=== PATIENT | female | born 1985 | race American Indian/Alaskan Native ===

== ENCOUNTER 2019-11-22 20:09 | Inpatient (IN) | payer OTHER ==
--- NOTE | 2019-11-22 20:13 | Event Note ---
ED Screening Note ED Screening Note: facial droop began at 7 PM tonight forehead sparing code stroke initiated This initial assessment/diagnostic orders/clinical plan/treatment(s) is/are subject to change based on patients health status, clinical progression and re- assessment by fellow clinical providers in the ED. Further treatment and workup at subsequent clinical providers discretion. Patient/guardian urged not to elope from the ED as their condition may be serious if not clinically assessed and managed.
[2019-11-22 20:41] LABS: Basophils % (Auto) 0.3 % (0.0-1.8); Eosinophils # (Auto) 0.2 K/mm3 (0.0-0.4); Eosinophils % (Auto) 3.8 % (0.0-4.3); Hemoglobin 11.5 gm/dl (10.1-14.3); Lymphocytes # (Auto) 3.3 K/mm3 (1.2-5.4); Lymphocytes % (Auto) 52.9 % (13.4-35.0); Mean Corpuscular HGB Conc 32 % (30-34); Mean Corpuscular Volume 76 fl (79-97); Monocytes # (Auto) 0.4 K/mm3 (0.0-0.8); Monocytes % (Auto) 5.9 % (0.0-7.3); Platelet Count 247 K/mm3 (140-440); Red Blood Count 4.75 M/mm3 (3.65-5.03); Red Cell Distribution Width 16.6 % (13.2-15.2)
--- NOTE | 2019-11-22 20:48 | Emergency Department Report ---
ED Neuro Deficit HPI - General Chief Complaint: Neuro Symptoms/Deficit Stated Complaint: FACE TWISTING Time Seen by Provider: 11/22/19 20:12 Source: patient Mode of arrival: Ambulatory Limitations: No Limitations - History of Present Illness Initial Comments: 34-year-old female the past medical history of anemia presents to the hospital planing of stroke symptoms at 7 PM. Patient was driving from another state and about 7 PM noticed that her left face was twisting. She FaceTime to family member who noticed that she had left-sided facial droop. Patient reports that she has a mild unsteady gait prior to arrival as well. Patient has had a intermittent left-sided headache and denies a history of migraines. Patient does have a twin sister who has a history of hypertension and previous CVA in her early 30s. Patient has not had her blood pressure checked to determine if if she has high blood pressure presents with hypertension in the ED. code stroke was initiated in triage - Related Data Allergies/Adverse Reactions: Allergies Allergy/AdvReac Type Severity Reaction Status Date / Time No Known Allergies Allergy Verified 11/22/19 20:42 ED Review of Systems ROS: Stated complaint: FACE TWISTING Other details as noted in HPI Comment: All other systems reviewed and negative ED Neuro Physical Exam - General Limitations: No Limitations Suspected Stroke: Yes - NIHSS Assessment Interval: Baseline 1a. Level of Consciousness: alert/keenly responsive 1b. LOC Questions: answers both correctly 1c. LOC Commands: performs tasks correctly 2. Best Gaze: normal 3. Visual: no visual loss 4. Facial Palsy: minor paralysis 5b. Motor Arm Right: no drift 5a. Motor Arm Left: drift 6a. Motor Leg Left: some gravity effort 6b. Motor Leg Right: no drift 7. Limb Ataxia: absent 8. Sensory: mild/moderate sensory loss 9. Best Language: no aphasia 10. Dysarthria: normal 11. Extinction/Inattention: no abnormality Total Score: 5 Stroke Severity: Moderate Stroke - Other Other exam information: General: No acute distress Head: Atraumatic Eyes: normal appearance ENT: Moist mucous membranes Neck: Normal appearance, no midline tenderness Chest: Clear to auscultation bilaterally CV: Regular rate and rhythm Abdomen: Soft, normal bowel sounds, nontender, nondistended, no rebound or guarding Back: Normal inspection Extremity: Normal inspection, full range of motion Neuro: Alert O x 3, see NIHSS Psych: Appropriate behavior Skin: No rash ED Course Vital Signs 11/22/19 11/22/19 11/22/19 20:20 20:41 21:00 Temperature 98.3 F Pulse Rate 83 88 82 Pulse Rate [ Right Arm] Respiratory 16 20 Rate Respiratory Rate [Right Arm ] Blood Pressure 192/105 151/94 Blood Pressure [Right Arm] Blood Pressure 177/114 [Right] O2 Sat by Pulse 100 98 Oximetry O2 Sat by Pulse Oximetry [ Right Arm] 11/22/19 11/22/19 11/22/19 21:02 21:05 21:44 Temperature 98.2 F Pulse Rate 87 85 Pulse Rate [ 87 Right Arm] Respiratory Rate Respiratory 16 Rate [Right Arm ] Blood Pressure 132/90 132/90 Blood Pressure 132/90 [Right Arm] Blood Pressure [Right] O2 Sat by Pulse Oximetry O2 Sat by Pulse 100 Oximetry [ Right Arm] 11/22/19 11/22/19 11/22/19 21:45 22:00 22:15 Temperature Pulse Rate 92 H 83 80 Pulse Rate [ Right Arm] Respiratory 16 14 14 Rate Respiratory Rate [Right Arm ] Blood Pressure 150/98 150/90 150/73 Blood Pressure [Right Arm] Blood Pressure [Right] O2 Sat by Pulse 100 98 100 Oximetry O2 Sat by Pulse Oximetry [ Right Arm] 11/22/19 11/22/19 11/22/19 22:30 22:46 22:53 Temperature Pulse Rate 78 77 Pulse Rate [ Right Arm] Respiratory 14 12 16 Rate Respiratory Rate [Right Arm ] Blood Pressure 125/77 125/77 Blood Pressure [Right Arm] Blood Pressure [Right] O2 Sat by Pulse 100 Oximetry O2 Sat by Pulse Oximetry [ Right Arm] 11/22/19 23:00 Temperature Pulse Rate 76 Pulse Rate [ Right Arm] Respiratory 11 L Rate Respiratory Rate [Right Arm ] Blood Pressure 128/75 Blood Pressure [Right Arm] Blood Pressure [Right] O2 Sat by Pulse 100 Oximetry O2 Sat by Pulse Oximetry [ Right Arm] - Reevaluation(s) Reevaluation #1: 11/22/19 22:16 Patient complained of frontal headache that started after near completion of TPA infusion. Case we discussed with neurologist who is in agreement that patient needs a repeat CT head is indicated. Morphine 4 mg and Zofran 4 mg ordered - Lab Data Result diagrams: 11/22/19 20:30 11/22/19 20:30 Lab Results 11/22/19 11/22/19 11/22/19 Range/Units 20:24 20:30 20:30 WBC 6.3 (4.5-11.0) K/mm3 RBC 4.75 (3.65-5.03) M/mm3 Hgb 11.5 (10.1-14.3) gm/dl Hct 36.0 (30.3-42.9) % MCV 76 L (79-97) fl MCH 24 L (28-32) pg MCHC 32 (30-34) % RDW 16.6 H (13.2-15.2) % Plt Count 247 (140-440) K/mm3 Lymph % (Auto) 52.9 H (13.4-35.0) % [place] % (Auto) 5.9 (0.0-7.3) % Eos % (Auto) 3.8 (0.0-4.3) % Baso % (Auto) 0.3 (0.0-1.8) % Lymph # 3.3 (1.2-5.4) K/mm3 [place] # 0.4 (0.0-0.8) K/mm3 Eos # 0.2 (0.0-0.4) K/mm3 Baso # 0.0 (0.0-0.1) K/mm3 Seg Neutrophils % 37.1 L (40.0-70.0) % Seg Neutrophils # 2.3 (1.8-7.7) K/mm3 PT 13.0 (12.2-14.9) Sec. INR 0.97 (0.87-1.13) APTT 27.5 (24.2-36.6) Sec. Thrombin Time 16.5 (15.1-19.6) Sec. Sodium (137-145) mmol/L Potassium (3.6-5.0) mmol/L Chloride (98-107) mmol/L Carbon Dioxide (22-30) mmol/L Anion Gap mmol/L BUN (7-17) mg/dL Creatinine (0.7-1.2) mg/dL Estimated GFR ml/min BUN/Creatinine Ratio % Glucose (65-100) mg/dL POC Glucose 103 (70-105) Calcium (8.4-10.2) mg/dL Total Bilirubin (0.1-1.2) mg/dL AST (5-40) units/L ALT (7-56) units/L Alkaline Phosphatase (35-129) units/L Total Creatine Kinase (30-135) units/L CK-MB (CK-2) (0.0-4.0) ng/mL CK-MB (CK-2) Rel Index (0-4) Troponin T (0.00-0.029) ng/mL Total Protein (6.3-8.2) g/dL Albumin (3.9-5) g/dL Albumin/Globulin Ratio % HCG, Quant (0-4) mIU/mL 11/22/19 11/22/19 11/22/19 Range/Units 20:30 20:30 20:30 WBC (4.5-11.0) K/mm3 RBC (3.65-5.03) M/mm3 Hgb (10.1-14.3) gm/dl Hct (30.3-42.9) % MCV (79-97) fl MCH (28-32) pg MCHC (30-34) % RDW (13.2-15.2) % Plt Count (140-440) K/mm3 Lymph % (Auto) (13.4-35.0) % [place] % (Auto) (0.0-7.3) % Eos % (Auto) (0.0-4.3) % Baso % (Auto) (0.0-1.8) % Lymph # (1.2-5.4) K/mm3 [place] # (0.0-0.8) K/mm3 Eos # (0.0-0.4) K/mm3 Baso # (0.0-0.1) K/mm3 Seg Neutrophils % (40.0-70.0) % Seg Neutrophils # (1.8-7.7) K/mm3 PT (12.2-14.9) Sec. INR (0.87-1.13) APTT (24.2-36.6) Sec. Thrombin Time (15.1-19.6) Sec. Sodium 142 (137-145) mmol/L Potassium 3.6 (3.6-5.0) mmol/L Chloride 106.0 (98-107) mmol/L Carbon Dioxide 23 (22-30) mmol/L Anion Gap 17 mmol/L BUN 13 (7-17) mg/dL Creatinine 0.7 (0.7-1.2) mg/dL Estimated GFR > 60 ml/min BUN/Creatinine Ratio 19 % Glucose 97 (65-100) mg/dL POC Glucose (70-105) Calcium 9.4 (8.4-10.2) mg/dL Total Bilirubin 0.20 (0.1-1.2) mg/dL AST 18 (5-40) units/L ALT 15 (7-56) units/L Alkaline Phosphatase 44 (35-129) units/L Total Creatine Kinase 70 (30-135) units/L CK-MB (CK-2) < 1.0 (0.0-4.0) ng/mL CK-MB (CK-2) Rel Index 1.4 (0-4) Troponin T < 0.010 (0.00-0.029) ng/mL Total Protein 7.6 (6.3-8.2) g/dL Albumin 4.3 (3.9-5) g/dL Albumin/Globulin Ratio 1.3 % HCG, Quant < 2 (0-4) mIU/mL - EKG Data -: EKG Interpreted by Pr EKG shows normal: sinus rhythm, ST-T waves (no stemi) Rate: normal (84) When compared to previous EKG there are: previous EKG unavailable - Radiology Data Radiology results: report reviewed NONENHANCED CT SCAN OF THE BRAIN: INDICATION: Left-sided facial numbness TECHNIQUE: Routine CT head without contrast. Sagittal and coronal reformatted images were obtained. All CT scans at this location are performed using CT dose reduction for ALARA by means of automated exposure control. COMPARISON: None. FINDINGS: BRAIN / INTRACRANIAL CONTENTS: Hemorrhage:No intracranial hemorrhage; no subarachnoid hemorrhage Stroke mimics: None Acute/subacute territorial infarction: Ochoa-white matter interface: No blurring; normal Insular cortex: Normal Basal ganglia: Normal Wedge shaped parenchymal low density area: Not present Cortical sulci: Not effaced Lacunar infarctions: None Vasculopathy: Dense middle cerebral artery sign: Not present Internal carotid artery terminus: Normal Basilar artery:Normal Middle cerebral artery branches in the sylvian fissure (Dot sign): Normal Calcified embolus: Not present ASPECT score: Not applicable Chronic lesions: No Focal chronic lesions; considering the age, height convexity cortical sulci are slightly prominent. White matter: Craniocervical junction:No significant abnormality Orbits:No significant abnormality Paranasal sinuses/mastoids:No significant abnormality Additional findings: None IMPRESSION: No acute subacute infarction CTA HEAD WITH CONTRAST HISTORY: Left face, arm and leg weakness COMPARISON: None. TECHNIQUE: Routine non-contrast CT Head, CTA of the head and post-contrast CT Head are performed. 3-D/MIP reformats postprocessed. All CT scans at this location are performed using CT dose reduction for ALARA by means of automated exposure control CONTRAST: 100 ml of Omnipaque 350 FINDINGS: CTA Head: Intracranial vertebral arteries: No significant abnormality. Basilar artery: Patent but smaller. Basilar tip is normal. Both posterior communicating arteries are contributing to posterior cerebral arteries. Posterior cerebral arteries: No significant abnormality. Intracranial internal carotid arteries: No significant abnormality. Anterior cerebral arteries: No significant abnormality. Middle cerebral arteries: No significant abnormality. Dural venous sinuses:Not optimally opacified. No significant abnormality. Additional findings: None. IMPRESSION: 1. No significant abnormality. CTA NECK WITH CONTRAST HISTORY: Left-sided facial numbness COMPARISON: None. TECHNIQUE: Routine CTA of the neck was performed. 3-D/MIP reformats were postprocessed. Percentage stenosis is determined by direct quantitative measurements of diseased internal carotid artery loco meter compared with normal distal internal carotid artery reference segments or by criteria similar to NASCET where applicable.All CT scans at this location are performed using CT dose reduction for ALARA by means of automated exposure control CONTRAST: 100 ml of Omnipaque 350 FINDINGS: Aortic arch: No significant abnormality. Cervical vertebral arteries: No significant abnormality. Common carotid arteries: No sig nificant abnormality. Carotid bifurcations: Normal Cervical internal carotid arteries: Minimal changes are seen in the right internal carotid artery at the level of C1. This could be due to change in the course of the internal carotid artery. It does not appear to be from fibromuscular dysplasia. Cervical segment of left internal carotid artery is normal. Additional findings: None. IMPRESSION: Normal carotid bifurcations CT HEAD WITHOUT CONTRAST 1037 hours INDICATION: frontal headache s/p tpa infusion. TECHNIQUE: All CT scans at this location are performed using CT dose reduction for ALARA by means of automated exposure control. COMPARISON: Exam from 2 hours earlier the same day FINDINGS: HEMORRHAGE: None. EXTRA-AXIAL SPACES: Normal in size and morphology for the patient's age. VENTRICULAR SYSTEM: Normal in size and morphology for the patient's age. BRAIN PARENCHYMA: No acute findings. MIDLINE SHIFT OR HERNIATION: None. ORBITS: Normal as visualized. SOFT TISSUES OF HEAD: Normal. CALVARIUM: Normal. VISUALIZED PARANASAL SINUSES AND MASTOID AIR CELLS: Clear. ADDITIONAL FINDINGS: Residual contrast is noted from the CTA performed earlier. IMPRESSION: 1. No significant change. - Medical Decision Making Patient was evaluated by myself and tele-neurologist and thought that TPA was indicated after return of negative noncontrast CT head report. Patient was hypotensive and received labetalol 10 mg IV push with improvement in blood pressure prior to TPA administration. CT angiogram head and neck was performed and were unremarkable. Patient developed headache post TPA infusion and stat repeat CT head was ordered. Morphine 4 mg and Zofran 4 mg provided. Patient to be admitted to the hospitalist service since she is not an indication for transfer for thrombectomy based on CT angiogram head and neck results. Repeat CT head status post TPA infusion headache is negative for hemorrhage. Hospitalist Dr. Gastelum informed for admission Admission orders placed and critical care consult ordered. - Differential Diagnosis Complex migraine, CVA, hypertensive emergency, conversion disorder Critical Care Time: Yes Critical care time in (mins) excluding proc time.: 35 Critical care attestation.: If time is entered above; I have spent that time in minutes in the direct care of this critically ill patient, excluding procedure time. ED Disposition Clinical Impression: Left-sided weakness, Weakness on left side of face, Received intravenous tissue plasminogen activator (tPA) in emergency department, HTN (hypertension), Headache Disposition: OP ADMIT IP TO THIS HOSP Is pt being admited?: Yes Condition: Stable Time of Disposition: 23:06 (Dr. Gastelum/[facility])
[2019-11-22] MEDS ORDERED: ALTEPLASE 100 MG INJ KIT ONE (20:52)
[2019-11-22 20:53] LABS: INR 0.97 (0.87-1.13)
[2019-11-22 20:55] LABS: Partial Thromboplastin Time 27.5 Sec. (24.2-36.6); Thrombin Time 16.5 Sec. (15.1-19.6)
[2019-11-22 20:56] LABS: Alanine Aminotransferase 15 units/L (7-56); Albumin 4.3 g/dL (3.9-5); BUN/Creatinine Ratio 19; Blood Urea Nitrogen 13 mg/dL (7-17); Calcium 9.4 mg/dL (8.4-10.2); Hemolysis Index 2
[2019-11-22 21:00] LABS: Creatine Kinase MB < 1.0 ng/mL (0.0-4.0)
[2019-11-22] MEDS ORDERED: ALTEPLASE 100 MG INJ KIT IV ONE ×2 (21:02)
[2019-11-22] MEDS ORDERED: SODIUM CHLORIDE 0.9% 50 ML IVPB IV ONE (21:02)
--- NOTE | 2019-11-22 21:02 | Cat Scan Report ---
NONENHANCED CT SCAN OF THE BRAIN: INDICATION: Left-sided facial numbness TECHNIQUE: Routine CT head without contrast. Sagittal and coronal reformatted images were obtained. A ll CT scans at this location are performed using CT dose reduction for ALARA by means of automated ex posure control. COMPARISON: None. FINDINGS: BRAIN / INTRACRANIAL CONTENTS: Hemorrhage:No intracranial hemorrhage; no subarachnoid hemorrhage Stroke mimics: None Acute/subacute territorial infarction: Ochoa-white matter interface: No blurring; normal Insular cortex: Normal Basal ganglia: Normal Wedge shaped parenchymal low density area: Not present Cortical sulci: Not effaced Lacunar infarctions: None Vasculopathy: Dense middle cerebral artery sign: Not present Internal carotid artery terminus: Normal Basilar artery:Normal Middle cerebral artery branches in the sylvian fissure (Dot sign): Normal Calcified embolus: Not present ASPECT score: Not applicable Chronic lesions: No Focal chronic lesions; considering the age, height convexity cortical sulci are slightly prominent. White matter: Craniocervical junction:No significant abnormality Orbits:No significant abnormality Paranasal sinuses/mastoids:No significant abnormality Additional findings: None IMPRESSION: No acute subacute infarction This exam was performed as part of a code stroke protocol. The exam was completed at [facility] on 11/22/2019 7:51 PM. The exam was reviewed at 7:50 PM Central standard time and ALYCIA morley was notified at 7:57 PM Central standard time. Signer Name: Hira Mcleod MD Signed: 11/22/2019 8:58 PM Workstation Name: [id number]
--- NOTE | 2019-11-22 21:04 | Emergency Department Report ---
Blank Doc - Documentation Documentation: [employer] Tele[facility] Consult [facility] Date of Service: 11/22/2019 20:14:40 Impression: Rule Out Acute Ischemic Stroke Small Vessel Infarct Comments/Sign-Out: Clinical syndrome concerning for acute subcortical stroke. She has no CI to the medication and was able to consent. No use of AC, no recent stroke, no h/o ICH, no active bleeding. Her twin sister had a stroke in her 30s as well. Mechanism of Stroke: Small Vessel Disease Metrics: Last Known Well: 11/22/2019 19:00:00 [employer] Notification Time: 11/22/2019 20:14:40 Arrival Time: 11/22/2019 20:12:00 Stamp Time: 11/22/2019 20:14:40 Time First Login Attempt: 11/22/2019 20:19:09 Video Start Time: 11/22/2019 20:19:09 Symptoms: headache, facial weakness NIHSS Start Assessment Time: 11/22/2019 20:19:09 tPA Verbal Order Time: 11/22/2019 20:37:32 Patient is a candidate for tPA. tPA CPOE Order Time: 11/22/2019 20:37:32 Needle Time: 11/22/2019 21:02:36 Weight Noted by Staff: 174.[address] head showed no acute hemorrhage or acute core infarct. Lower Likelihood of Large Vessel Occlusion but Following Stat Studies are Recommended CTA Head and Neck. ED Physician notified of diagnostic impression and management plan on 11/22/2019 21:02:25 Verbal Consent to tPA: I have explained to the Patient the nature of the patients condition, the use of tPA fibrinolytic agent, and the benefits to be reasonably expected compared with alternative approaches. I have discussed the likelihood of major risks or complications of this procedure including (if applicable) but not limited to loss of limb function, brain damage, paralysis, hemorrhage, infection, complications from transfusion of blood components, drug reactions, blood clots and loss of life. I have also indicated that with any procedure there is always the possibility of an unexpected complication. All questions were answered and Patient express understanding of the treatment plan and consent to the treatment. Our recommendations are outlined below. Recommendations: IV tPA recommended. tPA bolus given Without Complication. IV tPA Total Dose 71.1 mg IV tPA Bolus Dose 7.1 mg IV tPA Infusion Dose - 64.0 mg Routine post tPA monitoring including neuro checks and blood pressure control during/after treatment Monitor blood pressure Check blood pressure and NIHSS every 15 min for 2 h, then every 30 min for 6 h, and finally every hour for 16 h. Manage Blood Pressure per post tPA protocol. Admission to ICU CT brain 24 hours post tPA NPO until swallowing screen performed and passed No antiplatelet agents or anticoagulants (including heparin for DVT prophylaxis) in first 24 hours No Mckenzie catheter, nasogastric tube, arterial catheter or central venous catheter for 24 hr, unless absolutely necessary Telemetry Bedside swallow evaluation HOB less than 30 degrees Euglycemia Avoid hyperthermia, PRN acetaminophen DVT prophylaxis Inpatient Neurology Consultation Stroke evaluation as per inpatient neurology recommendations Additional Recommendations: MRI Head Without Contrast Vascular Studies to Be Recommended After Admission: MRA Head Without Contrast, MRA Neck with Contrast in AM Start Atorvastatin Lipid Panel Check Hgb A1c Dysphagia Screen DVT Prophylaxis Hyperglycemia Treatment as per Primary Team PT/ OT / Speech Therapy Consultation Neurology to Be Consulted for Inpatient Routine Consultation Discussed with ED physician History of Present Illness: Patient is a 34 year old Female. Patient was brought by private transportation with symptoms of headache, facial weakness 34 yo F without sig PMH p/w left sided weakness. The patient reports that she n oted the trouble with CT head showed no acute hemorrhage or acute core infarct. Examination: BP(151/94), Blood Glucose(103) 1A: Level of Consciousness - Alert; keenly responsive + 0 1B: Ask Month and Age - Both Questions Right + 0 1C: Blink Eyes & Squeeze Hands - Performs Both Tasks + 0 2: Test Horizontal Extraocular Movements - Normal + 0 3: Test Visual Bundy - No Visual Loss + 0 4: Test Facial Palsy (Use Grimace if Obtunded) - Minor paralysis (flat nasolabial fold, smile asymmetry) + 1 5A: Test Left Arm Motor Drift - No Drift for 10 Seconds + 0 5B: Test Right Arm Motor Drift - Drift, but doesn't hit bed + 1 6A: Test Left Leg Motor Drift - Drift, hits bed + 2 6B: Test Right Leg Motor Drift - No Drift for 5 Seconds + 0 7: Test Limb Ataxia (FNF/Heel-Caal) - No Ataxia + 0 8: Test Sensation - Mild-Moderate Loss: Less Sharp/More Dull + 1 9: Test Language/Aphasia - Normal; No aphasia + 0 10: Test Dysarthria - Normal + 0 11: Test Extinction/Inattention - No abnormality + 0 NIHSS Score: 5 Patient was informed the Neurology Consult would happen via TeleHealth consult by way of interactive audio and video telecommunications and consented to receiving care in this manner. Due to the immediate potential for life-threatening deterioration due to underlying acute neurologic illness, I spent 35 minutes providing critical care. This time includes time for face to face visit via telemedicine, review of medical records, imaging studies and discussion of findings with providers, the patient and/or family. Dr Yecenia Horowitz [facility] Case [id number]
--- NOTE | 2019-11-22 22:05 | Cat Scan Report ---
CTA NECK WITH CONTRAST HISTORY: Left-sided facial numbness COMPARISON: None. TECHNIQUE: Routine CTA of the neck was performed. 3-D/MIP reformats were postprocessed. Percentage s tenosis is determined by direct quantitative measurements of diseased internal carotid artery diamete r compared with normal distal internal carotid artery reference segments or by criteria similar to NA SCET where applicable.All CT scans at this location are performed using CT dose reduction for ALARA b y means of automated exposure control CONTRAST: 100 ml of Omnipaque 350 FINDINGS: Aortic arch: No significant abnormality. Cervical vertebral arteries: No significant abnormality. Common carotid arteries: No significant abnormality. Carotid bifurcations: Normal Cervical internal carotid arteries: Minimal changes are seen in the right internal carotid artery at the level of C1. This could be due to change in the course of the internal carotid artery. It does no t appear to be from fibromuscular dysplasia. Cervical segment of left internal carotid artery is norm al. Additional findings: None. IMPRESSION: Normal carotid bifurcations Signer Name: Hira Mcleod MD Signed: 11/22/2019 10:00 PM Workstation Name: [id number]
--- NOTE | 2019-11-22 22:09 | Cat Scan Report ---
CTA HEAD WITH CONTRAST HISTORY: Left face, arm and leg weakness COMPARISON: None. TECHNIQUE: Routine non-contrast CT Head, CTA of the head and post-contrast CT Head are performed. 3-D /MIP reformats postprocessed. All CT scans at this location are performed using CT dose reduction for ALARA by means of automated exposure control CONTRAST: 100 ml of Omnipaque 350 FINDINGS: CTA Head: Intracranial vertebral arteries: No significant abnormality. Basilar artery: Patent but smaller. Basilar tip is normal. Both posterior communicating arteries are contributing to posterior cerebral arteries. Posterior cerebral arteries: No significant abnormality. Intracranial internal carotid arteries: No significant abnormality. Anterior cerebral arteries: No significant abnormality. Middle cerebral arteries: No significant abnormality. Dural venous sinuses:Not optimally opacified. No significant abnormality. Additional findings: None. IMPRESSION: 1. No significant abnormality. Signer Name: Hira Mcleod MD Signed: 11/22/2019 10:05 PM Workstation Name: [id number]
[2019-11-22] MEDS ORDERED: ONDANSETRON 4 MG/2 ML INJ IV ONE (22:15)
[2019-11-22] MEDS ORDERED: MORPHINE 4 MG/1 ML INJ IV ONE (22:15)
--- NOTE | 2019-11-22 22:57 | Cat Scan Report ---
CT HEAD WITHOUT CONTRAST 1037 hours INDICATION: frontal headache s/p tpa infusion. TECHNIQUE: All CT scans at this location are performed using CT dose reduction for ALARA by means of automated e xposure control. COMPARISON: Exam from 2 hours earlier the same day FINDINGS: HEMORRHAGE: None. EXTRA-AXIAL SPACES: Normal in size and morphology for the patient's age. VENTRICULAR SYSTEM: Normal in size and morphology for the patient's age. BRAIN PARENCHYMA: No acute findings. MIDLINE SHIFT OR HERNIATION: None. ORBITS: Normal as visualized. SOFT TISSUES OF HEAD: Normal. CALVARIUM: Normal. VISUALIZED PARANASAL SINUSES AND MASTOID AIR CELLS: Clear. ADDITIONAL FINDINGS: Residual contrast is noted from the CTA performed earlier. IMPRESSION: 1. No significant change. Signer Name: Rodney Ahn MD Signed: 11/22/2019 10:52 PM Workstation Name: [id number]
--- NOTE | 2019-11-22 23:59 | History and Physical Report ---
History of Present Illness Date of examination: 11/22/19 Date of admission: 11/22/19 23:07 Chief complaint: left Sided headaches and facial droop History of present illness: 34 with PMH of Anemia, twin with CVA due to HTN, presents with sudden onset of left sided frontal headaches, that emerged at 6pm while she was sitting down talking with her sister on the phone. She says it was a dull, throbbing 8/10 character ache that she became worried when her face felt heavy. She facetimed her mother, who has a hx of [place] palsy to see whether it could be that. At that point, mother advised pt to seek urgent medical attention. Along the same timeline, she began to have left sided weakness, arm then leg. She denied any slurred speech or difficulty swallowing or grabbing things. OF note, pt's initial BP upon presentation was 190/106. She first denied a hx of HTN to me but later admitted to having a previously elevated BP, " a while back" but she says she was not given any medications nor did she ask why. She denies any hx of Migraine headaches, PE, DVT/PE, VA, or any bleeding diatheses, dysuria, polyuria, hematochezia, hematemesis, syncope. She is on day 3 of her menses. In the ED, a Stroke Code was called and Telemedicine Neurologist consult was placed in the ED. TPA was recommended and it was infused at 2102. 7.1mg TPA was given IV, then followed by 64mg infusion for 60 mins. Past History Past Medical History: hypertension (probable hx of HTN given previous elevated BP and hx of TWin with HTN and CVA) Past Surgical History: Other (Tubal ligation) Social history: no significant social history, full code. denies: smoking, alcohol abuse, prescription drug abuse, IV drug use Family history: stroke (twin sister) Medications and Allergies Allergies Allergy/AdvReac Type Severity Reaction Status Date / Time No Known Allergies Allergy Verified 11/22/19 20:42 Home Medications Medication Instructions Recorded Confirmed Last Taken Type No Known Home Medications [No 11/22/19 11/22/19 Unknown History Reported Home Medications] Review of Systems All systems: negative Exam - Constitutional Vitals: Temp Pulse Resp BP Pulse Ox 98.2 F 71 12 130/81 100 11/22/19 21:44 11/22/19 23:30 11/22/19 23:30 11/22/19 23:30 11/22/19 23:30 General appearance: Present: no acute distress, well-nourished - EENT Eyes: Present: PERRL ENT: hearing intact, clear oral mucosa - Neck Neck: Present: supple, normal ROM, rigidity - Respiratory Respiratory effort: normal Respiratory: bilateral: CTA - Cardiovascular Heart Sounds: Present: S1 & S2. Absent: rub, click - Extremities Extremities: pulses symmetrical, No edema Extremity abnormal: other - Abdominal General gastrointestinal: Present: soft, non-tender, non-distended, normal bowel sounds Female genitourinary: Present: normal - Integumentary Integumentary: Present: clear, warm, dry - Musculoskeletal Musculoskeletal: left sided weakness - Psychiatric Psychiatric: appropriate mood/affect (weak left dorsiflexion and weak hand [employer]), intact judgment & insight - Neurologic Neurologic: CNII-XII intact, focal deficits, moves all extremities SHARLENE score - Sharlene Score Age > 65: (0) No Aspirin use within the Past 7 Days: (0) No 2 or more Angina events in past 24 hrs: (0) No Known CAD with more than 50% Stenosis: (0) No Elevated Cardiac Markers: (0) No ST Deviation Greater than 0.5mm: (0) No Results - Labs CBC & Chem 7: 11/22/19 20:30 11/22/19 20:30 Labs: Laboratory Last Values WBC 6.3 K/mm3 (4.5-11.0) 11/22/19 20:30 RBC 4.75 M/mm3 (3.65-5.03) 11/22/19 20:30 Hgb 11.5 gm/dl (10.1-14.3) 11/22/19 20:30 Hct 36.0 % (30.3-42.9) 11/22/19 20:30 MCV 76 fl (79-97) L 11/22/19 20:30 MCH 24 pg (28-32) L 11/22/19 20:30 MCHC 32 % (30-34) 11/22/19 20:30 RDW 16.6 % (13.2-15.2) H 11/22/19 20:30 Plt Count 247 K/mm3 (140-440) 11/22/19 20:30 Lymph % (Auto) 52.9 % (13.4-35.0) H 11/22/19 20:30 [place] % (Auto) 5.9 % (0.0-7.3) 11/22/19 20:30 Eos % (Auto) 3.8 % (0.0-4.3) 11/22/19 20:30 Baso % (Auto) 0.3 % (0.0-1.8) 11/22/19 20:30 Lymph # 3.3 K/mm3 (1.2-5.4) 11/22/19 20:30 [place] # 0.4 K/mm3 (0.0-0.8) 11/22/19 20:30 Eos # 0.2 K/mm3 (0.0-0.4) 11/22/19 20:30 Baso # 0.0 K/mm3 (0.0-0.1) 11/22/19 20:30 Seg Neutrophils % 37.1 % (40.0-70.0) L 11/22/19 20:30 Seg Neutrophils # 2.3 K/mm3 (1.8-7.7) 11/22/19 20:30 PT 13.0 Sec. (12.2-14.9) 11/22/19 20:30 INR 0.97 (0.87-1.13) 11/22/19 20:30 APTT 27.5 Sec. (24.2-36.6) 11/22/19 20:30 Thrombin Time 16.5 Sec. (15.1-19.6) 11/22/19 20:30 Sodium 142 mmol/L (137-145) 11/22/19 20:30 Potassium 3.6 mmol/L (3.6-5.0) 11/22/19 20:30 Chloride 106.0 mmol/L (98-107) 11/22/19 20:30 Carbon Dioxide 23 mmol/L (22-30) 11/22/19 20:30 Anion Gap 17 mmol/L 11/22/19 20:30 BUN 13 mg/dL (7-17) 11/22/19 20:30 Creatinine 0.7 mg/dL (0.7-1.2) 11/22/19 20:30 Estimated GFR > 60 ml/min 03/02/20 20:30 BUN/Creatinine Ratio 19 % 11/22/19 20:30 Glucose 97 mg/dL (65-100) 11/22/19 20:30 POC Glucose 103 (70-105) 11/22/19 20:24 Calcium 9.4 mg/dL (8.4-10.2) 11/22/19 20:30 Total Bilirubin 0.20 mg/dL (0.1-1.2) 11/22/19 20:30 AST 18 units/L (5-40) 11/22/19 20:30 ALT 15 units/L (7-56) 11/22/19 20:30 Alkaline Phosphatase 44 units/L (35-129) 11/22/19 20:30 Total Creatine Kinase 70 units/L (30-135) 11/22/19 20:30 CK-MB (CK-2) < 1.0 ng/mL (0.0-4.0) 11/22/19 20:30 CK-MB (CK-2) Rel Index 1.4 (0-4) 11/22/19 20:30 Troponin T < 0.010 ng/mL (0.00-0.029) 11/22/19 20:30 Total Protein 7.6 g/dL (6.3-8.2) 11/22/19 20:30 Albumin 4.3 g/dL (3.9-5) 11/22/19 20:30 Albumin/Globulin Ratio 1.3 % 11/22/19 20:30 HCG, Quant < 2 mIU/mL (0-4) 11/22/19 20:30 Assessment and Plan Assessment and plan: Acute Cerebrovascular Disorder - likely due to Malignant HTN and/or ischemic CVA - Twin sister history is significant her as pt is 34 years old - with left sided hemiiparesis, facial droop - continue S/p TPA monitoring in the ICU with Q2hrs NEuro checks - CVA order sets completed - IVF with NS Malignant HTN - unclear etiology or could it be reactive given Acute Cerebrovascular Disorder - Brain autoregulation time line still indicated here as TPA given. Control BP effectively post TPA - Hydralazine IV PRN Menstral Cycle - pt says she has anemia normally. - ongoing - pt advised to relay to nursing staff if any unusual high volume vaginal or any bleeding occurs Full code/SCD only no chemical A/c Advance Directives: Yes
[2019-11-23] MEDS ORDERED: ONDANSETRON 4 MG/2 ML INJ IV PRN (00:05)
[2019-11-23] MEDS ORDERED: METOCLOPRAMIDE 10 MG/2 ML INJ IV PRN (00:05)
[2019-11-23] MEDS ORDERED: ACETAMINOPHEN 325 MG TAB PO PRN (00:05)
[2019-11-23] MEDS ORDERED: MORPHINE 2 MG/1 ML INJ IV PRN (00:05)
[2019-11-23] MEDS ORDERED: SODIUM CHLORIDE 0.9% 50 ML IVPB IV ONE (00:12)
[2019-11-23] MEDS ORDERED: ALTEPLASE 100 MG INJ KIT IV ONE ×2 (00:12)
[2019-11-23] MEDS ORDERED: hydrALAZINE 20 MG/1 ML INJ IV PRN (00:16)
[2019-11-23] MEDS: SODIUM CHLORIDE 0.9% 1000 ML 1,000 ML IV SCH ×2 (01:18→11:57)
[2019-11-23 06:46] LABS: Basophils # (Auto) 0.1 K/mm3 (0.0-0.1); Basophils % (Auto) 1.3 % (0.0-1.8); Eosinophils # (Auto) 0.2 K/mm3 (0.0-0.4); Hematocrit 30.8 % (30.3-42.9); Hemoglobin 9.7 gm/dl (10.1-14.3); Lymphocytes # (Auto) 3.2 K/mm3 (1.2-5.4); Lymphocytes % (Auto) 54.2 % (13.4-35.0); Mean Corpuscular HGB Conc 32 % (30-34); Mean Corpuscular Volume 76 fl (79-97); Monocytes # (Auto) 0.3 K/mm3 (0.0-0.8); Monocytes % (Auto) 5.1 % (0.0-7.3); Platelet Count 224 K/mm3 (140-440); Red Blood Count 4.07 M/mm3 (3.65-5.03); Red Cell Distribution Width 16.7 % (13.2-15.2)
[2019-11-23 09:37] LABS: Alanine Aminotransferase 11 units/L (7-56); Albumin 3.4 g/dL (3.9-5); BUN/Creatinine Ratio 16; Blood Urea Nitrogen 11 mg/dL (7-17); Calcium 8.4 mg/dL (8.4-10.2); Hemolysis Index 5
--- NOTE | 2019-11-23 11:42 | Consultation ---
History of Present Illness Consult date: 11/23/19 Requesting physician: JOSAFAT WOOTEN Reason for consult: other (Acute CVA s/ tpA) History of present illness: PULMONARY/CCM CONSULT NOTE (Full dictation # [id number]) Please see dictated notes for full details Past History Past Medical History: hypertension (probable hx of HTN given previous elevated BP and hx of TWin with HTN and CVA) Past Surgical History: Other (Tubal ligation) Social history: no significant social history, full code. denies: smoking, alcohol abuse, prescription drug abuse, IV drug use Family history: stroke (twin sister) Medications and Allergies Allergies Allergy/AdvReac Type Severity Reaction Status Date / Time No Known Allergies Allergy Verified 11/22/19 20:42 Home Medications Medication Instructions Recorded Confirmed Last Taken Type Aspirin [Aspirin BABY CHEW TAB] 81 mg PO QDAY #30 tab.chew 11/24/19 Unknown Rx AtorvaSTATin [Lipitor] 40 mg PO QHS #30 tablet 11/24/19 Unknown Rx hydroCHLOROthiazide [HCTZ] 25 mg PO QDAY #30 tablet 11/24/19 Unknown Rx Active Meds: Active Medications Acetaminophen (Tylenol) 650 mg PO Q6H PRN PRN Reason: Pain MILD(1-3)/Fever >100.5/HURTADO Last Admin: 11/23/19 10:32 Dose: 650 mg Documented by: Atorvastatin Calcium (Lipitor) 40 mg PO QHS SIGIFREDO Hydralazine HCl (Apresoline) 10 mg IV Q4HR PRN PRN Reason: Hypertension Sodium Chloride (Nacl 0.9% 1000 Ml) 1,000 mls @ 100 mls/hr IV DIRECT SIGIFREDO Stop: 11/24/19 10:14 Last Admin: 11/23/19 01:18 Dose: 100 mls/hr Documented by: Metoclopramide HCl (Reglan) 10 mg IV Q6H PRN PRN Reason: Headache Morphine Sulfate (Morphine) 2 mg IV Q4H PRN PRN Reason: Pain, Moderate (4-6) Ondansetron HCl (Zofran) 4 mg IV Q8H PRN PRN Reason: Nausea And Vomiting Sodium Chloride (Sodium Chloride Flush Syringe 10 Ml) 10 ml IV BID SIGIFREDO Last Admin: 11/23/19 10:33 Dose: 10 ml Documented by: Sodium Chloride (Sodium Chloride Flush Syringe 10 Ml) 10 ml IV PRN PRN PRN Reason: LINE FLUSH Physical Examination Vital signs: Vital Signs Temp Pulse Resp BP Pulse Ox 98.3 F 83 16 177/114 100 11/22/19 20:20 11/22/19 20:20 11/22/19 20:20 11/22/19 20:20 11/22/19 20:20 Results - Laboratory Findings CBC and BMP: 11/23/19 06:15 11/23/19 08:47 PT/INR, D-dimer PT 13.0 Sec. (12.2-14.9) 11/22/19 20:30 INR 0.97 (0.87-1.13) 11/22/19 20:30 Abnormal lab findings: Abnormal Labs 11/22/19 11/23/19 11/23/19 20:30 06:15 08:47 Hgb 9.7 L MCV 76 L 76 L MCH 24 L 24 L RDW 16.6 H 16.7 H Lymph % (Auto) 52.9 H 54.2 H Seg Neutrophils % 37.1 L 35.4 L Chloride 108.6 H Carbon Dioxide 19 L Glucose 101 H Albumin 3.4 L
--- NOTE | 2019-11-23 12:29 | Consultation ---
History of Present Illness Consult date: 11/23/19 Requesting physician: TAL SALCEDO Reason for Consult: L sided weakness s/p tpa, Chief complaint: L sided weakness L sided HURTADO yesterday History of present illness: 34 yo F pt w hx of HTN, twin sister w stroke early 30s and HTN, arrived yesterday w acute neuro changes and headache, L sided deficits and L sided headache w migraine symptoms throbbing without photophobia or nausea vomiting, all started around 7pm, NIHSS around 5 , arrived elevated BP , indicated for tpa after CT h, CTA h/n and tele neuro consult, tpa given, HURTADO worsened, repeat CT head neg, no tele events, no A.fib on ekg or tele, echo pending, no recurrent strokes, no neuro decline overnight, no prior neuro dis history, no hx of migraines Patient denies any sensory changes during her episode yesterday she only comp lains/complained of weakness tele : no a.fib LDL 80 This morning in evaluation of patient and noticed some functional aspects of her exam when she was asked to smile she forgot what side to keep down and what side to elevate also when asking her to elevate her arms there was some functional weakness on the left upper extremity Past History Past Medical History: hypertension (probable hx of HTN given previous elevated BP and hx of TWin with HTN and CVA) Past Surgical History: Other (Tubal ligation) Social history: no significant social history, full code. denies: smoking, alcohol abuse, prescription drug abuse, IV drug use Family history: stroke (twin sister) Medications and Allergies Allergies Allergy/AdvReac Type Severity Reaction Status Date / Time No Known Allergies Allergy Verified 11/22/19 20:42 Home Medications Medication Instructions Recorded Confirmed Last Taken Type No Known Home Medications [No 11/22/19 11/22/19 Unknown History Reported Home Medications] Active Meds: Active Medications Acetaminophen (Tylenol) 650 mg PO Q6H PRN PRN Reason: Pain MILD(1-3)/Fever >100.5/HURTADO Last Admin: 11/23/19 10:32 Dose: 650 mg Documented by: Atorvastatin Calcium (Lipitor) 40 mg PO QHS SIGIFREDO Hydralazine HCl (Apresoline) 10 mg IV Q4HR PRN PRN Reason: Hypertension Sodium Chloride (Nacl 0.9% 1000 Ml) 1,000 mls @ 100 mls/hr IV DIRECT SIGIFREDO Stop: 11/24/19 10:14 Last Admin: 11/23/19 11:57 Dose: 100 mls/hr Documented by: Metoclopramide HCl (Reglan) 10 mg IV Q6H PRN PRN Reason: Headache Morphine Sulfate (Morphine) 2 mg IV Q4H PRN PRN Reason: Pain, Moderate (4-6) Ondansetron HCl (Zofran) 4 mg IV Q8H PRN PRN Reason: Nausea And Vomiting Sodium Chloride (Sodium Chloride Flush Syringe 10 Ml) 10 ml IV BID [facility] Last Admin: 11/23/19 10:33 Dose: 10 ml Documented by: Sodium Chloride (Sodium Chloride Flush Syringe 10 Ml) 10 ml IV PRN PRN PRN Reason: LINE FLUSH Physical Examination - Vital Signs Vital Signs: Vital Signs Temp Pulse Resp BP Pulse Ox 98.3 F 83 16 177/114 100 11/22/19 20:20 11/22/19 20:20 11/22/19 20:20 11/22/19 20:20 11/22/19 20:20 - Physical Exam Narrative exam: AA O x4 no aphasia no dysarthria Cranial nerves are all intact except for functional right-sided weakness No double vision visual flores are full EOMI PERRLA Power to all limbs are 5 out of 5 strength except for functional weakness in the left 4 out of 5 strength but with good coaching it was 5 out of 5 without pronator drift Sensory is intact throughout No cerebellar signs Deep tendon reflexes are symmetrical throughout tone is symmetrical throughout Abdomen soft skin intact pulses good times all limbs Neck supple No extra movements No respiratory distress Results - Laboratory Findings CBC and BMP: 11/23/19 06:15 11/23/19 08:47 Abnormal Lab Findings: Abnormal Labs 11/22/19 11/23/19 11/23/19 20:30 06:15 08:47 Hgb 9.7 L MCV 76 L 76 L MCH 24 L 24 L RDW 16.6 H 16.7 H Lymph % (Auto) 52.9 H 54.2 H Seg Neutrophils % 37.1 L 35.4 L Chloride 108.6 H Carbon Dioxide 19 L Glucose 101 H Albumin 3.4 L Assessment and Plan Left face arm weakness possibly due to migraine versus stroke versus malingering versus conversion, if stroke lacunar presentation acute ischemic right MCA small vessel occlusion, status post TPA , exam seems functional no complications after TPA no atrial fibrillation no recurrent stroke symptoms patient states she is improving, stable MRI brain ordered pending Echocardiogram pending Repeat imaging in 24 hours after TPA if stroke is seen and no bleed then can start aspirin Continue telemetry and follow clinically HA1C ordered PT/OT
--- NOTE | 2019-11-23 21:48 | Progress Note ---
Assessment and Plan Assessment and plan: 34 with PMH of Anemia, twin with CVA due to HTN, presents with sudden onset of left sided frontal headaches, that emerged at 6pm while she was sitting down talking with her sister on the phone. She says it was a dull, throbbing 8/10 character ache that she became worried when her face felt heavy. She facetimed her mother, who has a hx of [place] palsy to see whether it could be that. At that point, mother advised pt to seek urgent medical attention. Along the same timeline, she began to have left sided weakness, arm then leg. She denied any slurred speech or difficulty swallowing or grabbing things. OF note, pt's initial BP upon presentation was 190/106. She first denied a hx of HTN to me but later admitted to having a previously elevated BP, " a while back" but she says she was not given any medications nor did she ask why. She denies any hx of Migraine headaches, PE, DVT/PE, CO, or a ny bleeding diatheses, dysuria, polyuria, hematochezia, hematemesis, syncope. She is on day 3 of her menses. In the ED, a Stroke Code was called and Telemedicine Neurologist consult was placed in the ED. TPA was recommended and it was infused at 2102. 7.1mg TPA was given IV, then followed by 64mg infusion for 60 mins. Acute Cerebrovascular Disorder - likely due to Malignant HTN and/or ischemic CVA - Twin sister history is significant her as pt is 34 years old - with left sided hemiiparesis, facial droop - continue S/p TPA monitoring in the ICU with Q2hrs NEuro checks - CVA order sets completed - IVF with NS - REPEAT MRI Malignant HTN - unclear etiology or could it be reactive given Acute Cerebrovascular Disorder - Brain autoregulation time line still indicated here as TPA given. Control BP effectively post TPA - Hydralazine IV PRN Menstral Cycle - pt says she has anemia normally. a bit more due to the TPA. will monitor - ongoing - pt advised to relay to nursing staff if any unusual high volume vaginal or any bleeding occurs Full code/SCD only no chemical A/c Advance Directives: Yes The high probability of a clinically significant, sudden or life threatening deterioration of the [neurology] system(s) required my full and direct attention, intervention and personal management. The aggregate critical care time was [35] minutes. This time is in addition to time spent performing reported procedures but includes the following: [x] Data Review and interpretation [x] Patient assessment and monitoring of vital signs [x] Documentation [x] Medication orders and management History Interval history: Patient seen and examined, no acute distress, resting comfortable. Unable to perform MRI today due to clostaphobia Hospitalist Physical - Physical exam Narrative exam: VITAL SIGNS: Reviewed. GENERAL: The patient appears normally developed, Vital signs as documented. HEAD: No signs of head trauma. EYES: Pupils are equal. Extraocular motions intact. EARS: Hearing grossly intact. MOUTH: Oropharynx is normal. NECK: No adenopathy, no JVD. CHEST: Chest with clear breath sounds bilaterally. No wheezes, rales, or rho nchi. CARDIAC: Regular rate and rhythm. S1 and S2, without murmurs, gallops, or rubs. VASCULAR: No Edema. Peripheral pulses normal and equal in all extremities. ABDOMEN: Soft, non tender and non distended. No rebound or guarding, and no masses palpated. Bowel Sounds normal. MUSCULOSKELETAL: Good range of motion of all major joints. Extremities without clubbing, cyanosis or edema. NEUROLOGIC EXAM: Alert and oriented x 3 No focal sensory or strength deficits. Speech normal. Follows commands. PSYCHIATRIC: Mood normal. SKIN: detial exam as documented in skin assessment - Constitutional Vitals: Temp Pulse Resp BP Pulse Ox 97.9 F 66 14 143/91 100 11/23/19 20:00 11/23/19 20:31 11/23/19 20:31 11/23/19 20:31 11/23/19 20:35 General appearance: Present: no acute distress, well-nourished SHARLENE score - Sharlene Score Age > 65: (0) No Aspirin use within the Past 7 Days: (0) No 2 or more Angina events in past 24 hrs: (0) No Known CAD with more than 50% Stenosis: (0) No Elevated Cardiac Markers: (0) No ST Deviation Greater than 0.5mm: (0) No Results - Labs CBC & Chem 7: 11/23/19 06:15 11/23/19 08:47 Labs: Laboratory Last Values WBC 6.0 K/mm3 (4.5-11.0) 11/23/19 06:15 RBC 4.07 M/mm3 (3.65-5.03) 11/23/19 06:15 Hgb 9.7 gm/dl (10.1-14.3) L 11/23/19 06:15 Hct 30.8 % (30.3-42.9) 11/23/19 06:15 MCV 76 fl (79-97) L 11/23/19 06:15 MCH 24 pg (28-32) L 11/23/19 06:15 MCHC 32 % (30-34) 11/23/19 06:15 RDW 16.7 % (13.2-15.2) H 11/23/19 06:15 Plt Count 224 K/mm3 (140-440) 11/23/19 06:15 Lymph % (Auto) 54.2 % (13.4-35.0) H 11/23/19 06:15 [place] % (Auto) 5.1 % (0.0-7.3) 11/23/19 06:15 Eos % (Auto) 4.0 % (0.0-4.3) 11/23/19 06:15 Baso % (Auto) 1.3 % (0.0-1.8) 11/23/19 06:15 Lymph # 3.2 K/mm3 (1.2-5.4) 11/23/19 06:15 [place] # 0.3 K/mm3 (0.0-0.8) 11/23/19 06:15 Eos # 0.2 K/mm3 (0.0-0.4) 11/23/19 06:15 Baso # 0.1 K/mm3 (0.0-0.1) 11/23/19 06:15 Seg Neutrophils % 35.4 % (40.0-70.0) L 11/23/19 06:15 Seg Neutrophils # 2.1 K/mm3 (1.8-7.7) 11/23/19 06:15 PT 13.0 Sec. (12.2-14.9) 11/22/19 20:30 INR 0.97 (0.87-1.13) 11/22/19 20:30 APTT 27.5 Sec. (24.2-36.6) 11/22/19 20:30 Thrombin Time 16.5 Sec. (15.1-19.6) 11/22/19 20:30 Sodium 142 mmol/L (137-145) 11/23/19 08:47 Potassium 3.9 mmol/L (3.6-5.0) 11/23/19 08:47 Chloride 108.6 mmol/L (98-107) H 11/23/19 08:47 Carbon Dioxide 19 mmol/L (22-30) L 11/23/19 08:47 Anion Gap 18 mmol/L 11/23/19 08:47 BUN 11 mg/dL (7-17) 11/23/19 08:47 Creatinine 0.7 mg/dL (0.7-1.2) 11/23/19 08:47 Estimated GFR > 60 ml/min 11/23/19 08:47 BUN/Creatinine Ratio 16 % 11/23/19 08:47 Glucose 101 mg/dL (65-100) H 11/23/19 08:47 POC Glucose 103 (70-105) 11/22/19 20:24 Hemoglobin A1c 5.4 % (4-6) 11/23/19 06:15 Calcium 8.4 mg/dL (8.4-10.2) 11/23/19 08:47 Total Bilirubin 0.30 mg/dL (0.1-1.2) 11/23/19 08:47 AST 15 units/L (5-40) 11/23/19 08:47 ALT 11 units/L (7-56) 11/23/19 08:47 Alkaline Phosphatase 38 units/L (35-129) 11/23/19 08:47 Total Creatine Kinase 70 units/L (30-135) 11/22/19 20:30 CK-MB (CK-2) < 1.0 ng/mL (0.0-4.0) 11/22/19 20:30 CK-MB (CK-2) Rel Index 1.4 (0-4) 11/22/19 20:30 Troponin T < 0.010 ng/mL (0.00-0.029) 11/22/19 20:30 Total Protein 6.3 g/dL (6.3-8.2) 11/23/19 08:47 Albumin 3.4 g/dL (3.9-5) L 11/23/19 08:47 Albumin/Globulin Ratio 1.2 % 11/23/19 08:47 Triglycerides mg/dL (2-149) 11/23/19 06:15 Cholesterol mg/dL (50-199) 11/23/19 06:15 LDL Cholesterol Direct mg/dL (50-130) 11/23/19 06:15 HDL Cholesterol mg/dL (40-59) 11/23/19 06:15 Cholesterol/HDL Ratio % 11/23/19 06:15 HCG, Quant < 2 mIU/mL (0-4) 11/22/19 20:30 Active Medications - Current Medications Current Medications: Generic Name Dose Route Start Last Admin Trade Name Freq PRN Reason Stop Dose Admin Acetaminophen 650 mg 11/23/19 00:05 11/23/19 10:32 Tylenol PO 650 mg Q6H PRN Administration Pain MILD(1-3)/Fever >100.5/HURTADO Atorvastatin Calcium 40 mg 11/23/19 22:00 Lipitor PO QHS SIGIFREDO Enoxaparin Sodium 40 mg 11/24/19 10:00 Enoxaparin SUB-Q QDAY@1000 SIGIFREDO Famotidine 20 mg 11/23/19 22:00 Pepcid PO BID SIGIFREDO Hydralazine HCl 10 mg 11/23/19 00:16 Apresoline IV Q4HR PRN Hypertension Sodium Chloride 1,000 mls @ 100 mls/hr 11/23/19 00:15 11/23/19 11:57 Nacl 0.9% 1000 Ml IV 11/24/19 10:14 100 mls/hr DIRECT SIGIFREDO Administration Metoclopramide HCl 10 mg 11/23/19 00:05 Reglan IV Q6H PRN Headache Morphine Sulfate 2 mg 11/23/19 00:05 Morphine IV Q4H PRN Pain, Moderate (4-6) Ondansetron HCl 4 mg 11/23/19 00:05 Zofran IV Q8H PRN Nausea And Vomiting Sodium Chloride 10 ml 11/23/19 10:00 11/23/19 10:33 Sodium Chloride Flush Syringe 10 Ml IV 10 ml BID SIGIFREDO Administration Sodium Chloride 10 ml 11/23/19 00:05 Sodium Chloride Flush Syringe 10 Ml IV PRN PRN LINE FLUSH
[2019-11-23] MEDS: FAMOTIDINE 20 MG TAB PO SCH (22:16)
[2019-11-24] MEDS ORDERED: LORazepam 2 MG/ML VIAL IV NR (09:30)
[2019-11-24] MEDS: FAMOTIDINE 20 MG TAB PO SCH (09:43)
[2019-11-24] MEDS ORDERED: ENOXAPARIN 40 MG/0.4 ML INJ SUB-Q SCH (10:00)
[2019-11-24] MEDS ORDERED: ASPIRIN 81 MG TAB CHEW PO SCH (11:00)
--- NOTE | 2019-11-24 12:24 | Magnetic Resonance Report ---
MRI BRAIN WITHOUT CONTRAST INDICATION / CLINICAL INFORMATION: CVA, left-sided weakness, left-sided frontal headache. TECHNIQUE: Multisequence, multiplanar images were obtained. COMPARISON: CT head dated 11/22/2019 FINDINGS: CEREBRAL and CEREBELLAR HEMISPHERES: No evidence of mass or mass effect. No midline shift. No acute hemorrhage. No diffusion restriction to suggest acute infarct. No extra-axial fluid collection. VENTRICLES: Normal in size and configuration for age. VISUALIZED ORBITS: No significant abnormality. VISUALIZED PARANASAL SINUSES: No significant abnormality. ADDITIONAL FINDINGS: None. IMPRESSION: Normal MR brain. Signer Name: Karri Alcaraz Jr, MD Signed: 11/24/2019 12:20 PM Workstation Name: [id number]
--- NOTE | 2019-11-24 13:02 | Progress Note ---
Subjective Date of service: 11/24/19 Interval history: Patient is seen today for: Seen and examined at bedside; 24hour events reviewed; nursing and respiratory care staff consulted; no adverse overnight events reported to me; Objective Vital Signs - 12hr 11/24/19 11/24/19 11/24/19 01:31 02:00 02:31 Temperature Pulse Rate 62 62 62 Pulse Rate [ From Monitor] Respiratory 15 14 15 Rate Blood Pressure 110/71 132/72 132/72 O2 Sat by Pulse 99 99 98 Oximetry 11/24/19 11/24/19 11/24/19 03:00 03:31 03:58 Temperature 97.5 F L Pulse Rate 81 67 Pulse Rate [ From Monitor] Respiratory 18 11 L Rate Blood Pressure 100/74 100/74 O2 Sat by Pulse 99 100 Oximetry 11/24/19 11/24/19 11/24/19 04:00 04:01 04:31 Temperature Pulse Rate 60 58 L 64 Pulse Rate [ 60 From Monitor] Respiratory 12 12 15 Rate Blood Pressure 123/83 123/83 O2 Sat by Pulse 98 98 98 Oximetry 11/24/19 11/24/19 11/24/19 05:00 05:31 06:01 Temperature Pulse Rate 77 75 79 Pulse Rate [ From Monitor] Respiratory 14 9 L 18 Rate Blood Pressure 129/90 129/90 146/95 O2 Sat by Pulse 100 100 99 Oximetry 11/24/19 11/24/19 11/24/19 06:31 07:01 07:31 Temperature Pulse Rate 57 L 59 L 60 Pulse Rate [ From Monitor] Respiratory 15 13 19 Rate Blood Pressure 146/95 150/89 150/89 O2 Sat by Pulse 99 99 98 Oximetry 11/24/19 11/24/19 11/24/19 08:00 08:31 08:41 Temperature 98.4 F Pulse Rate 65 61 Pulse Rate [ 65 From Monitor] Respiratory 12 15 Rate Blood Pressure 152/93 152/93 O2 Sat by Pulse 98 99 100 Oximetry 11/24/19 11/24/19 11/24/19 09:00 09:31 10:01 Temperature Pulse Rate 73 66 66 Pulse Rate [ From Monitor] Respiratory 14 11 L 14 Rate Blood Pressure 133/83 133/83 141/78 O2 Sat by Pulse 98 99 100 Oximetry 11/24/19 10:31 Temperature Pulse Rate 74 Pulse Rate [ From Monitor] Respiratory 14 Rate Blood Pressure 141/78 O2 Sat by Pulse 99 Oximetry CBC and BMP: 11/23/19 06:15 11/23/19 08:47 ABG, PT/INR, D-dimer: PT/INR, D-dimer PT 13.0 Sec. (12.2-14.9) 11/22/19 20:30 INR 0.97 (0.87-1.13) 11/22/19 20:30 Abnormal lab findings: Abnormal Labs 11/22/19 11/23/19 11/23/19 20:30 06:15 08:47 Hgb 9.7 L MCV 76 L 76 L MCH 24 L 24 L RDW 16.6 H 16.7 H Lymph % (Auto) 52.9 H 54.2 H Seg Neutrophils % 37.1 L 35.4 L Chloride 108.6 H Carbon Dioxide 19 L Glucose 101 H Albumin 3.4 L
--- NOTE | 2019-11-24 14:12 | Discharge Summary ---
Providers - Providers Date of Admission: 11/22/19 23:07 Attending physician: TAL SALCEDO MD 11/22/19 23:08 Consult to Physician [CONS] Urgent Comment: Consulting Provider: MICAELA MCKINLEY Physician Instructions: Reason For Exam: left side weakness, s/p tpa 11/23/19 12:13 Consult to Physician [CONS] Routine Comment: Consulting Provider: YULIA ROSADO Physician Instructions: Reason For Exam: Code Stroke 11/23/19 14:15 Occupational Therapy Evaluate and Treat [CONS] Routine Comment: Reason For Exam: evaluation post stroke 11/23/19 14:16 Physical Therapy Evaluation and Treat [CONS] Routine Comment: Reason For Exam: post stroke evaluation Primary care physician: HARNESS INSPECTOR Hospitalization Condition: Stable Disposition: DC-01 TO HOME OR SELFCARE Time spent for discharge: 35 mins Core Measure Documentation - Palliative Care Palliative Care/ Comfort Measures: Not Applicable Exam - Constitutional Vitals: Temp Pulse Resp BP Pulse Ox 97.9 F 91 H 18 165/112 99 11/24/19 12:00 11/24/19 14:03 11/24/19 13:31 11/24/19 14:03 11/24/19 10:31 Plan Activity: advance as tolerated, fall precautions Diet: low fat Special Instructions: record daily weights, record daily BP diary Follow up with: PRIMARY CAREMD [Primary Care Provider] - 7 Days PAT ALVAREZ MD [Staff Physician] - 7 Days Prescriptions: AtorvaSTATin [Lipitor] 40 mg PO QHS #30 tablet Aspirin [Aspirin BABY CHEW TAB] 81 mg PO QDAY #30 tab.chew hydroCHLOROthiazide [HCTZ] 25 mg PO QDAY #30 tablet
[2019-11-24 16:18] VITALS: BP 165/112
--- NOTE | 2019-11-24 23:37 | Consultation ---
PULMONARY CRITICAL CARE CONSULTATION NOTE CONSULTING PHYSICIAN: Dr. Odom from the Emergency Room. REASON FOR CONSULTATION: Acute cerebrovascular accident, status post TPA, need for ICU observation. CHIEF COMPLAINT AND HISTORY OF PRESENT ILLNESS: The patient is a 34-year-old -[place] female with past medical history significant for hypertension as well as anemia, who presented to the hospital complaining of stroke symptoms about 7:00 p.m. on the day of admission about an hour after it started, she [place] noticed her face was twisting while talking to a family member on the FaceTime on iPhone. She was found to have a left-sided facial droop. She also complained of an unsteady gait prior to arrival. She had intermittent left-sided headache. Denied any history of migraines. Denied any trauma. She does have a twin sister with a history of hypertension and CVAs/family history. In the ER, she was evaluated. I believe the tele neurologist evaluated her. She was deemed to be a suitable candidate for TPA with a differential diagnosis of the complex migraine or a hypertensive emergency as her blood pressure was a little bit on the high side when she came, but that was controlled. Post-TPA, she was brought into the Critical Care Unit where I stopped by to see her. When I stopped by to see her, she was resting in bed, still seemed to complain of left-sided weakness. She denied nausea, vomiting, or overt aspiration. When asked about tobacco use/abuse history, she denied a history of tobacco use, whatsoever. This really is as much of the history of presentation as I have. PAST MEDICAL HISTORY: Hypertension, which she claims she did not know about and then anemia. PAST SURGICAL HISTORY: She has had tubal ligation. MEDICATIONS: She was on at the time I stopped by to see her, according to the medication administration record included the following: Tylenol 650 mg p.o. q. 6 hours p.r.n. mild pain or fevers, Lipitor 40 mg p.o. at bedtime p.r.n. hydralazine 10 mg IV q. 4 hours p.r.n. elevated blood pressure, Reglan 10 mg IV q. 6 hours p.r.n. headache, morphine sulfate 2 mg IV q. 4 hours p.r.n. moderate pain, Zofran 4 mg IV q. 8 hours p.r.n. nausea and vomiting. ALLERGIES: No known drug allergies. DIET: Well-built lady. Denies acute weight loss or gain in the preceding few weeks to months. FAMILY AND SOCIAL HISTORY: Lives in the community. Denies alcohol, tobacco, or illicit drug use or abuse. Family history is significant for hypertension and cerebrovascular accident. REVIEW OF SYSTEMS: No overt loss of consciousness. No new onset seizures. She complained of left-sided focal weakness. No gross hematochezia or melena. No gross hematuria, no hematemesis. No hemoptysis. Denies palpitations. Denies chest pain. Denies heat or cold intolerance. Denies polydipsia or polyuria. Complete 13-system review of systems obtained. Pertinent positives and/or negatives as in body of history above, otherwise are noncontributory. PHYSICAL EXAMINATION: VITAL SIGNS: At presentation, she was afebrile, temperature 98.3 degrees Fahrenheit, pulse of 83, respiratory rate of 16, blood pressure 177/114 as high as 192/105, O2 sats 100%, inspired oxygen concentration at that time was not recorded. When I did stop by to see her, O2 sats were 99%; however, that was on 2 liters nasal cannula. GENERAL: Well-built young -[place] female, normocephalic, atraumatic, talking to me in full sentences without significant respiratory distress. HEAD, EYES, EARS, NOSE AND THROAT: She was anicteric, no conjunctival erythema. Oropharynx was moist. Mallampati #2 oropharynx. No gross jugular venous distention. No obvious facial droop at the time of that initial exam. No thyromegaly. NECK: Grossly there were no palpable lymph nodes in the supraclavicular or submandibular lymph node chains. LUNGS: Auscultation of both lung flores unremarkable. Lungs were clear bilaterally with good bilateral air movement. HEART: Heart sounds 1 and 2 are heard, regular rate and rhythm at the time of my evaluation without overt rubs or murmurs. ABDOMEN: Soft, full, bowel sounds are positive, nontender, no palpable hepatosplenomegaly. EXTREMITIES: Without overt digital clubbing, no cyanosis, no pedal edema. NEUROLOGIC: Pupils are equal, round, about 4 mm, reactive to light. Extraocular muscle movements were intact. Her strength on the left side, both upper and lower extremities, was about 3/5 at the time of my exam, while it was 5/5 on the right side. PSYCHIATRIC: Mood was normal. Affect was appropriate. SKIN: Without overt rash, no cellulitis in the areas examined. LABORATORY DATA: From my review are as follows: Admission white cell count 6300, hemoglobin 11.5, hematocrit 36.0, and platelet count 247. INR was within normal limits. Serum sodium is 142, potassium 3.6, chloride 106, bicarbonate 23, BUN 13, creatinine 0.7, glucose 103. Liver function test is within normal limits. Troponin is within normal limits. LDL cholesterol result was pending. Urine test was negative. No cultures. Imaging was done. A CT scan of her head was done that showed no acute CVA. A CTA of the head and neck was also done, no significant abnormality with normal carotid bifurcations. An echocardiogram was done. It shows a normal EF, borderline LVH, trace tricuspid regurgitation with RV systolic pressures of 26 mmHg. ASSESSMENT: 1. Acute neurologic deficit, perhaps a transient ischemic attack. 2. Hypertension, possible hypertensive urgency at presentation. 3. History of anemia. 4. Anemia that is microcytic. 5. Mild metabolic acidosis with a serum bicarbonate of 19. PLAN: We will observe her in the Intensive Care Unit post-CVA for 24-hour period. We will continue other medications secondary prevention as detailed in the history above medication lists. Continued tobacco abstinence has been encouraged. Neurology evaluation is ongoing. We will follow their recommendations. Some weight loss has been recommended. She will be placed on GI prophylaxis. DVT prophylaxis will be started post-observation on TPA. Flu and pneumonia vaccination will be addressed per protocol. Thank you very much for the consult. We will follow along and make further recommendations as picture progresses/becomes clearer. JOB# [id number]/RENY
== END 2019-11-24 16:26 | disposition home or self-care (01) | DRG 62 ==
LOC: ED 20:09 → CC1 23:07
PROVIDERS: ADMIT Hospitalist; ATTEND Internal Medicine
DX: I63.9 Cerebral infarction, unspecified (principal); G81.94 Hemiplegia, unspecified affecting left nondominant side; R29.810 Facial weakness; I10 Essential (primary) hypertension; D50.9 Iron deficiency anemia, unspecified; Z98.51 Tubal ligation status; Z82.3 Family history of stroke
CPT/HCPCS: 36415; 70450; 70496; 70498; 70551; 80048; 80053; 80061; 82550; 82553; 82962; 83036; 84484; 84702; 85025; 85610; 85670; 85730; 93005; 93010; 93306; 94760; 96374; 96375; G0378; A9270-GY; J0360; J1650; J2060; J2270; J2405; J2997; J7030; Q9967